=== PATIENT | male | born 1960 | race Caucasian/White ===

== ENCOUNTER 2021-04-16 00:33 | Emergency (ER) | payer SELFPAY ==
[~2021-04-16 00:33] MED LIST: IBUPROFEN800 M1 PO; NORCO 5-325 TA1 EACH PO; VOLTAREN **OUT75 MG PO
[2021-04-16] MEDS ORDERED: NORCO 5-325 TA1 EACH PO (02:30)
== END 2021-04-16 02:57 | disposition home or self-care (01) ==
LOC: FER 00:33
DX: S01.01XA Laceration without foreign body of scalp, initial encounter (principal); S09.90XA Unspecified injury of head, initial encounter; M25.511 Pain in right shoulder; Y00.XXXA Assault by blunt object, initial encounter; Y92.89 Other specified places as the place of occurrence of the external cause; Y99.0 Civilian activity done for income or pay
CPT/HCPCS: 70450; 73020